=== PATIENT | female | born 1955 | race Asian ===

== ENCOUNTER 2017-01-28 07:47 | Emergency (ER) | payer OTHER ==
[~2017-01-28] VITALS: Ht 144.8 cm; Wt 65.8 kg
[2017-01-28 07:51] VITALS: BP_SYST 134
[2017-01-28 08:17] LABS: BILIRUBIN,URINE 1+ (NEGATIVE); BLOOD, URINE 3+ (NEGATIVE); CLARITY/URINE CLOUDY (CLEAR); COLOR,URINE RED (YELLOW); GLUCOSE,URINE NEGATIVE (NEGATIVE); KETONES,URINE NEGATIVE (NEGATIVE); LEUKOCYTE ESTERASE ,URINE 2+ (NEGATIVE); NITRITE, URINE NEGATIVE (NEGATIVE); PROTEIN URINE 2+ (NEGATIVE); UROBILINOGEN,URINE 0.2 (0.2-1.0)
[2017-01-28 08:25] LABS: BACTERIA,URINE MANY /HPF (None Seen); MUCUS,URINE 1+ /LPF (None Seen); RBC,URINE 80-100 /HPF (0-3)
[2017-01-28 09:35] VITALS: BP_SYST 128
== END 2017-01-28 09:35 | disposition home or self-care (01) ==
LOC: SED 07:47
DX: N39.0 Urinary tract infection, site not specified (principal)
CPT/HCPCS: 81000-TC; 87086; 99284